=== PATIENT | female | born 1935 | race Caucasian/White ===

== ENCOUNTER 2017-06-04 18:38 | Emergency (ER) | payer MEDICARE, BC ==
[2017-06-04 19:22] VITALS: BP 143/53
--- NOTE | 2017-06-04 21:04 | RAD ---
Indication: Left hip pain. 2 views of the left hip and an AP view of the pelvis is reviewed. Incongruity at the left inferior pubic ramus is again identified and was present previously. This may represent old fracture. Patient is status post left hip replacement. The acetabular and femoral components are well seated. The right hip is unremarkable. IMPRESSION: Left hip replacement in satisfactory position. Incongruity of the left inferior pubic ramus likely due to old injury and is unchanged from September 02, 2016.
--- NOTE | 2017-06-04 22:20 | UC ---
Hip/Pelvis Pain - HPI Summary HPI Summary: LEFT HIP REPLACEMENT IN 1987 WITH REPAIR 2002. HAS HAD LEFT HIP PAIN FOR THREE WEEKS, HAS APPOINTMENT WITH DR MAGALLANES IN THREE DAYS. TODAY WAS TWISTING, FELT POP IN LEFT HIP. PAIN CONTINUES. ABLE TO BEAR WEIGHT/AMBULATE. - History Of Current Complaint Chief Complaint: UCLowerExtremity Stated Complaint: HIP INJURY Time Seen by Provider: 06/04/17 20:07 Hx Obtained From: Patient, Family/Director Digital Catalogue Onset/Duration: Sudden Onset, Lasting Hours, Lasting Weeks Timing: Constant Severity Initially: Mild Severity Currently: Mild Pain Intensity: 2 Pain Scale Used: 0-10 Numeric Location: Discrete At: - LEFT HIP Character Of Pain: Dull, Aching, Spasmodic Aggravating Factor(s): Movement, Weight Bearing Alleviating Factor(s): Rest, Position Associated Signs And Symptoms: Positive: Negative - Allergies/Home Medications Allergies/Adverse Reactions: Allergies Allergy/AdvReac Type Severity Reaction Status Date / Time Vancomycin Allergy Unknown Verified 06/04/17 19:22 Reaction Details Home Medications: Home Medications Acetaminophen [Pain Relief 8 Hour] 650 mg PO PRN 06/04/17 [History] Aleve* 1 tab PO PRN 06/04/17 [History] PMH/Surg Hx/FS Hx/Imm Hx Previously Healthy: Yes - Surgical History Surgical History: Yes Surgery Procedure, Year, and Place: d&c 1970&80's90's. hysteroscopy 1991. right breast lumpectomy with axillary dissection 1990. lt hip replacement 1987. lt hip revision 2002. lt hammertoe surgery 1998. rt foot hammertoe with cyst removal 2003. rt knee replacement 2004. left knee - Family History Known Family History: Positive: Hypertension - Social History Occupation: Retired Lives: With Family Alcohol Use: Daily Alcohol Amount: 1 GLASS WINE/DAY Substance Use Type: None Smoking Status (MU): Former Smoker Length of Time of Smoking/Using Tobacco: 30 YRS Have You Smoked in the Last Year: No When Did the Patient Quit Smoking/Using Tobacco: 1987 - Immunization History Most Recent Influenza Vaccination: 2014 Most Recent Tetanus Shot: WITHIN 10 YRS Most Recent Pneumonia Vaccination: HAS HAD- NOT SURE WHEN Review of Systems Constitutional: Negative Skin: Negative Eyes: Negative ENT: Negative Respiratory: Negative Cardiovascular: Negative Gastrointestinal: Negative Genitourinary: Negative Motor: Negative Neurovascular: Negative Musculoskeletal: Arthralgia, Myalgia Neurological: Negative Psychological: Negative Is Patient Immunocompromised?: No All Other Systems Reviewed And Are Negative: Yes Physical Exam Triage Information Reviewed: Yes Appearance: Well-Appearing, Well-Nourished, Pain Distress - MILD Vital Signs: Initial Vital Signs Temp 96.9 F 06/04/17 19:17 Pulse 73 06/04/17 19:17 Resp 16 06/04/17 19:17 BP 143/53 06/04/17 19:17 Pulse Ox 98 06/04/17 19:17 Vital Signs Reviewed: Yes Eye Exam: Normal ENT Exam: Normal ENT: Positive: Normal ENT inspection Dental Exam: Normal Neck exam: Normal Neck: Positive: Supple Respiratory Exam: Normal Respiratory: Positive: Chest non-tender, Lungs clear, Normal breath sounds, No respiratory distress, No accessory muscle use Cardiovascular Exam: Normal Cardiovascular: Positive: RRR, No Murmur, Pulses Normal, Brisk Capillary Refill Abdominal Exam: Normal Abdomen Description: Positive: Nontender, No Organomegaly Musculoskeletal: Positive: Strength Intact, ROM Intact, No Edema, Other: - TENDER TO PALPATION OF LEFT GLUTEUS Neurological Exam: Normal Psychological Exam: Normal Skin Exam: Normal Hip Injury Course/Dx - Differential Dx/Diagnosis Differential Diagnosis/HQI/PQRI: Contusion, Dislocation, Sprain, Strain Provider Diagnoses: LEFT HIP SPRAIN Discharge - Discharge Plan Condition: Stable Disposition: HOME Patient Education Materials: Hip Sprain (ED) Referrals: Charleen Magallanes MD [Medical Doctor] - Tommy Mendoza MD [Primary Care Provider] -
== END 2017-06-04 21:35 | disposition home or self-care (01) ==
LOC: UCEAST 18:38
DX: S73.102A Unspecified sprain of left hip, initial encounter (principal); X50.1XXA Overexertion from prolonged static or awkward postures, initial encounter; Y92.9 Unspecified place or not applicable
CPT/HCPCS: 99211; G0463

== ENCOUNTER 2018-01-09 22:33 | Emergency (ER) | payer MEDICARE, BC ==
[2018-01-10] MEDS ORDERED: Tetan/Diph/Pertus SYR(Tdap)* 0.5 ML SYR(BOOSTRIX) use SYR IM ONE (01:06)
--- NOTE | 2018-01-10 01:15 | ED ---
Head Injury - HPI Summary HPI Summary: Complains of mechanical fall today with head injury, laceration to left eyebrow. Patient denies LOC, RODARTE, vision change, N/V, change in mental status, neck pain, back pain chest wall pain, abdomen pain, bilateral lower external ear pain, bilateral upper extremity pain. Denies trauma to teeth tongue and lips. Family also states of change in mental status. No anti-coag. Medical history is arthritis. - History Of Current Complaint Chief Complaint: EDLacSutureRecheck Stated Complaint: FALL/FACE LAC Hx Obtained From: Patient, Family/Food Processor Pain Intensity: 0 - Allergies/Home Medications Allergies/Adverse Reactions: Allergies Allergy/AdvReac Type Severity Reaction Status Date / Time MS Vancomycin [Vancomycin] Allergy Unknown Verified 06/04/17 19:22 Reaction Details vancomycin Allergy Unknown Verified 01/09/18 22:39 Reaction Details PMH/Surg Hx/FS Hx/Imm Hx Endocrine/Hematology History: Denies: Hx Diabetes Cardiovascular History: Reports: Hx Hypertension, Other Cardiovascular Problems/ Disorders - 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 Denies: Hx Pacemaker/ICD GI History: Reports: Other GI Disorders - HX DIVERTICULITIS History: Denies: Hx Dialysis, Hx Renal Disease Musculoskeletal History: Reports: Hx Arthritis - OSTEO Denies: Hx Rheumatoid Arthritis, Hx Osteoporosis, Hx Scoliosis Sensory History: Reports: Hx Cataracts - LEFT, Hx Contacts or Glasses - READING Denies: Hx Hearing Aid Opthamlomology History: Reports: Hx Cataracts - LEFT, Hx Contacts or Glasses - READING Neurological History: Denies: Hx Headaches, Other Neuro Impairments/Disorders Psychiatric History: Denies: Hx Panic Disorder - Cancer History Cancer Type, Location and Year: breast cancer with surgery and radiation Hx Chemotherapy: No Hx Radiation Therapy: Yes - BREAST - Surgical History Surgery Procedure, Year, and Place: d&c 1970&80's90's. hysteroscopy 1991. right breast lumpectomy with axillary dissection 1990. lt hip replacement 1987. lt hip revision 2002. lt hammertoe surgery 1998. rt foot hammertoe with cyst removal 2003. rt knee replacement 2004. left knee Hx Anesthesia Reactions: No Infectious Disease History: No Infectious Disease History: Denies: Traveled Outside the [place] in Last 30 Days - Family History Known Family History: Positive: Hypertension - Social History Alcohol Use: Daily Alcohol Amount: 1 GLASS WINE/DAY Substance Use Type: Reports: None Smoking Status (MU): Former Smoker Length of Time of Smoking/Using Tobacco: 30 YRS Have You Smoked in the Last Year: No Review of Systems Constitutional: Negative Eyes: Negative ENT: Negative Cardiovascular: Negative Respiratory: Negative Gastrointestinal: Negative Genitourinary: Negative Musculoskeletal: Negative Skin: Negative Neurological: Negative Psychological: Normal All Other Systems Reviewed And Are Negative: Yes Physical Exam - Summary Physical Exam Summary: The 4 cm laceration above left eye. EOMs intact. PERRLA. No evidence of trauma to nose, tongue, teeth, nose. Full range of motion of neck. No pain with palpation of neck. No pain with palpation of back, chest wall, abdomen, bilateral lower extremities, bilateral upper extremity is. Patient is ambulated. Patient moves flexes and extends bilateral lower extremities without indication of pain. Moves and flexes and extends bilateral upper arms within range of chronic arthritis. Neuro exam normal Triage Information Reviewed: Yes Vital Signs On Initial Exam: Initial Vitals Temp Pulse Resp BP Pulse Ox 97.1 F 93 16 157/69 98 01/09/18 22:39 01/09/18 22:39 01/09/18 22:39 01/09/18 22:39 01/09/18 22:39 Vital Signs Reviewed: Yes Appearance: Positive: Well-Appearing Skin: Positive: Warm Head/Face: Positive: Normal Head/Face Inspection Eyes: Positive: Normal Neck: Positive: Supple Respiratory/Lung Sounds: Positive: Clear to Auscultation Cardiovascular: Positive: Normal Abdomen Description: Positive: Nontender Musculoskeletal: Positive: Normal Neurological: Positive: Normal Psychiatric: Positive: Normal AVPU Assessment: Alert - Gary Coma Scale Best Eye Response: 4 - Spontaneous Best Motor Response: 6 - Obeys Commands Best Verbal Response: 5 - Oriented Coma Scale Total: 15 Procedures - Laceration/Wound Repair 1 Location: face Description: Irregular Anesthesia: Local, 1.0% Length, Depth and Shape: 4cmx 1cm Betadine Prep?: Yes Irrigated w/ Saline (ccs): 40 - saline and chlorhexadane Laceration/Wound Explored: clean Debridement: minimal Suture Type: Prolene Number of Sutures: 12 - 6.0 Layer Closure?: No Sterile Dressing Applied?: No Diagnostics - Vital Signs Vital Signs Temp Pulse Resp BP Pulse Ox 01/09/18 22:39 97.1 F 93 16 157/69 98 - Laboratory Lab Statement: Any lab studies that have been ordered have been reviewed, and results considered in the medical decision making process. - CT brain CT Interpretation: No Acute Changes CT Interpretation Completed By: Radiologist maxillofacial CT Interpretation: No Acute Changes CT Interpretation Completed By: Radiologist Head Injury Course/Dx Course Of Treatment: Mechanical fall with laceration to left eyebrow. - Diagnoses Provider Diagnoses: Fall, Laceration Discharge - Sign-Out/Discharge Documenting (check all that apply): Discharge/Admit/Transfer - Discharge Plan Condition: Stable Disposition: HOME Patient Education Materials: Laceration (ED), Care For Your Stitches (ED), Facial Laceration (ED), Fall Prevention for Older Adults (ED) Referrals: Tommy Mendoza MD [Primary Care Provider] - Additional Instructions: Facial sutures out in 5-7 days. Wash with warm running water and soap. Do not submerge underwater for a week. Follow-up with primary care. Return to the ED for any new or worsening symptoms - Billing Disposition and Condition Condition: STABLE Disposition: HOME
[2018-01-10] MEDS ORDERED: Cephalexin CAP* 500 MG PO ONE (03:23)
[2018-01-10] MEDS ORDERED: Acetaminophen TAB* 325 MG PO ONE (03:29)
[2018-01-10 03:52] VITALS: BP 141/79
--- NOTE | 2018-01-10 08:00 | RAD ---
HISTORY: Maxillofacial trauma, left eye laceration COMPARISONS: None TECHNIQUE: Multiple contiguous axial CT scans were obtained of the face without intravenous contrast, with coronal and sagittal multiplanar reformations. FINDINGS: BONES: There is transverse linear lucency along the nasal bones bilaterally, without displacement. The orbital rims are intact. The zygomatic arches are intact. The pterygoid plates are intact. There is osteoarthritis of the temporal window joints. Degenerative changes are noted of the cervical spine. ORBITS: The globes are round. The optic nerves are symmetric. The extraocular musculature is normal. There is no post septal or intraconal inflammatory change. There is no retrobulbar hematoma. PARANASAL SINUSES: The paranasal sinuses are clear. BRAIN AND SOFT TISSUE: Unremarkable. OTHER: None. IMPRESSION: NONDISPLACED NASAL BONE FRACTURE.
--- NOTE | 2018-01-10 08:01 | RAD ---
HISTORY: Fall, head trauma COMPARISONS: None TECHNIQUE: Multiple contiguous axial CT scans were obtained of the head without intravenous contrast. FINDINGS: HEMORRHAGE/INFARCT: There is no hemorrhage or acute infarct. MASSES/SHIFT: There is no mass or shift. EXTRA-AXIAL SPACES: There are no extra-axial fluid collections. SULCI AND VENTRICLES: The sulci and ventricles are normal in size and position for the patient's stated age. CEREBRUM: There is mild patchy hypoattenuation of the periventricular and subcortical white matter. BRAINSTEM: There are no focal parenchymal abnormalities. CEREBELLUM: There are no focal parenchymal abnormalities. VESSELS: The vessels are grossly normal. PARANASAL SINUSES: The paranasal sinuses are clear. ORBITS: The orbits are unremarkable. BONES AND SOFT TISSUE: No bone or soft tissue abnormalities are noted. OTHER: None IMPRESSION: NO ACUTE INTRACRANIAL PATHOLOGY. MILD CHRONIC SMALL VESSEL ISCHEMIC CHANGES.
== END 2018-01-10 03:50 | disposition home or self-care (01) ==
LOC: ED 22:33
DX: S01.112A Laceration without foreign body of left eyelid and periocular area, initial encounter (principal); S09.90XA Unspecified injury of head, initial encounter; W19.XXXA Unspecified fall, initial encounter; Y93.9 Activity, unspecified; Y92.9 Unspecified place or not applicable; Z23 Encounter for immunization; I10 Essential (primary) hypertension; K57.92 Diverticulitis of intestine, part unspecified, without perforation or abscess without bleeding; Z85.3 Personal history of malignant neoplasm of breast; Z96.642 Presence of left artificial hip joint; Z96.651 Presence of right artificial knee joint; Z88.1 Allergy status to other antibiotic agents
CPT/HCPCS: 12013; 70450; 70486; 90471; 90715; 99282; A9270-GY

== ENCOUNTER 2018-05-06 21:31 | Emergency (ER) | payer MEDICARE, BC ==
[2018-05-06 21:45] VITALS: BP 140/64
[2018-05-06] MEDS ORDERED: Nitrofurantoin Macrocrystals* 50 MG CAP PO ONE (21:58)
--- NOTE | 2018-05-06 22:04 | UC ---
Complaint Female HPI - HPI Summary HPI Summary: This patient is an 82 year old F presenting to [facility] with a chief complaint of possible UTI since earlier this evening. She has slight dysuria and urinary urgency. Patient denies fever, abdominal pain, and back pain. PMHx UTIs. The patient states that this feels like past UTIs. - History Of Current Complaint Chief Complaint: UCGU Stated Complaint: POSS UTI Time Seen by Provider: 05/06/18 21:36 Hx Obtained From: Patient Onset/Duration: Sudden Onset, Still Present Timing: Constant, Lasting Minutes Severity Initially: Mild Severity Currently: Mild Pain Intensity: 1 Pain Scale Used: 0-10 Numeric Character: Burning - Slight dysuria Aggravating Factor(s): Nothing Alleviating Factor(s): Nothing - Allergies/Home Medications Allergies/Adverse Reactions: Allergies Allergy/AdvReac Type Severity Reaction Status Date / Time vancomycin Allergy Unknown Verified 05/06/18 21:38 Reaction Details PMH/Surg Hx/FS Hx/Imm Hx Cardiovascular History: Hypertension GI/ History: Diverticulitis Cancer History: Breast Cancer - Surgical History Surgical History: Yes Surgery Procedure, Year, and Place: d&c 1970&80's90's. hysteroscopy 1991. right breast lumpectomy with axillary dissection 1990. lt hip replacement 1987. lt hip revision 2002. lt hammertoe surgery 1998. rt foot hammertoe with cyst removal 2003. rt knee replacement 2005. left knee 2016 - Family History Known Family History: Positive: Hypertension - Social History Alcohol Use: Daily Alcohol Amount: 1 GLASS WINE/DAY Substance Use Type: None Smoking Status (MU): Former Smoker Length of Time of Smoking/Using Tobacco: 30 YRS Have You Smoked in the Last Year: No When Did the Patient Quit Smoking/Using Tobacco: 1987 - Immunization History Most Recent Influenza Vaccination: 2015 Most Recent Tetanus Shot: WITHIN 10 YRS Most Recent Pneumonia Vaccination: HAS HAD- NOT SURE WHEN Review of Systems Constitutional: Other - Denies Fever Gastrointestinal: Other - Denies abdominal pain. Genitourinary: Dysuria, Urgency Musculoskeletal: Other: - Denies back pain All Other Systems Reviewed And Are Negative: Yes Physical Exam - Summary Physical Exam Summary: VITAL SIGNS: Reviewed. GENERAL: Patient is a well-developed and nourished FEMALE who is lying comfortable in the stretcher. Patient is not in any acute respiratory distress. HEAD AND FACE: Normocephalic EYES: PERRLA, EOMI x 2. EARS: Hearing grossly intact. MOUTH: Oropharynx within normal limits. NECK: Supple, trachea is midline, no adenopathy, no JVD, no carotid bruit. CHEST: Symmetric, no tenderness at palpation LUNGS: Clear to auscultation bilaterally. No wheezing or crackles. CVS: Regular rate and rhythm, S1 and S2 present, no murmurs or gallops appreciated. ABDOMEN: Soft, non-tender. Bowel sounds are normal. No abdominal abnormal pulsations. EXTREMITIES: Full ROM in all major joints, no edema, no cyanosis or clubbing. NEURO: Alert and oriented x 3. No acute neurological deficits. Speech is normal and follows commands. SKIN: Dry and warm Triage Information Reviewed: Yes Vital Signs: Initial Vital Signs Temp 98.2 F 05/06/18 21:40 Pulse 100 05/06/18 21:40 Resp 16 05/06/18 21:40 BP 140/64 05/06/18 21:40 Pulse Ox 97 05/06/18 21:40 Vital Signs Reviewed: Yes Re-Evaluation - Re-Evaluation First Eval Re-Evaluation Time: 21:59 Complaint Female Dx - Course Course Of Treatment: 82-year-old female with urinary frequency and urgency. Urinalysis positive for UTI. The patient was given Nitrofurantoin. Patient was advised if the symptoms do not improve or worsen she should return to the urgent care with follow-up with the primary care physician or the emergency department for further workup and management. Patient understands and agrees. - Differential Dx/Diagnosis Provider Diagnoses: UTI Discharge - Sign-Out/Discharge Documenting (check all that apply): Patient Departure - Discharge All imaging exams completed and their final reports reviewed: No Studies - Discharge Plan Condition: Stable Disposition: HOME Prescriptions: Nitrofurantoin Macrocrystals* [Macrodantin 100 mg*] 100 mg PO BID #14 cap Patient Education Materials: Urinary Tract Infection in Women (DC) Referrals: Tommy Mendoza MD [Primary Care Provider] - Additional Instructions: Take medications as instructed and adhere to plan Take Acetaminophen or ibuprofen for pain or fever Increase your fluid intake Return to the or go to the emergency department if symptoms worsen Follow-up with primary care physician in next 2-3 days - Billing Disposition and Condition Condition: STABLE Disposition: Home - Attestation Statements Document Initiated by Ianibandria: Yes Documenting Scribe: Manuel House Provider For Whom Scribe is Documenting (Include Credential): Iron Hebert MD Scribe Attestation: I, Manuel House, scribed for Iron Hebert MD on 05/06/18 at 2207. Scribe Documentation Reviewed: Yes Provider Attestation: The documentation as recorded by the ianibManuel ayers accurately reflects the service I personally performed and the decisions made by me, Iron Hebert MD
--- NOTE | 2018-05-09 15:26 | UC ---
- Progress Note Progress Note: +E Coli sensitive to Macrobid pt Rx Rx macrobid no change 05/09/18 15:26 Re-Evaluation - Re-Evaluation First Eval Re-Evaluation Time: 21:59 Discharge - Sign-Out/Discharge Documenting (check all that apply): Post-Discharge Follow Up All imaging exams completed and their final reports reviewed: No Studies - Discharge Plan Condition: Stable Disposition: HOME Prescriptions: Nitrofurantoin Macrocrystals* [Macrodantin 100 mg*] 100 mg PO BID #14 cap Patient Education Materials: Urinary Tract Infection in Women (DC) Referrals: Tommy Mendoza MD [Primary Care Provider] - Additional Instructions: Take medications as instructed and adhere to plan Take Acetaminophen or ibuprofen for pain or fever Increase your fluid intake Return to the or go to the emergency department if symptoms worsen Follow-up with primary care physician in next 2-3 days - Billing Disposition and Condition Condition: STABLE Disposition: Home
== END 2018-05-06 22:07 | disposition home or self-care (01) ==
LOC: UCEAST 21:31
DX: N39.0 Urinary tract infection, site not specified (principal); B96.20 Unspecified Escherichia coli [E. coli] as the cause of diseases classified elsewhere; Z88.1 Allergy status to other antibiotic agents; I10 Essential (primary) hypertension; Z87.891 Personal history of nicotine dependence
CPT/HCPCS: 81003; 87077; 87086; 87186; 99212; A9270-GY; G0463

== ENCOUNTER 2018-09-07 05:30 | Inpatient (IN) | payer MEDICARE, BC ==
--- NOTE | 2018-09-05 09:23 | HP ---
PREOPERATIVE HISTORY AND PHYSICAL: DATE OF ADMISSION/SURGERY: 09/07/18 DATE OF OFFICE VISIT: 09/02/18 ATTENDING SURGEON: Dr. Mamadou Angelo.* (DICTATED BY XOCHITL GIBSON) PROCEDURE: Left total shoulder reverse. CHIEF COMPLAINT: Left shoulder pain. HISTORY OF PRESENT ILLNESS: Ebonie is an 82-year-old female, who presents to the clinic for left shoulder pain due to rotator cuff tear and osteoarthritis. She has failed conservative measures and therefore agreed to undergo a left total shoulder reverse with Dr. Angelo on 09/07/18. She also has complaint of right shoulder pain. Her last cortisone injection in the right shoulder was last May or June. The right shoulder pain has come back. She is interested in injection prior to surgery, so it will help her recover postoperatively since she will rely mostly on her right side. PAST MEDICAL HISTORY: Osteoarthritis, hypertension, lung fibrosis, osteopenia, history of breast cancer in 1990. PAST SURGICAL HISTORY: Left total hip arthroplasty, revision left total hip arthroplasty, lumpectomy of the right breast, right total knee arthroplasty, bilateral foot surgeries, hysteroscopy, tubal ligation, left total knee replacement. The patient denies prior complications with anesthesia. MEDICATIONS: 1. Amoxicillin 500 mg 4 tabs 1 hour before dental work. 2. Naproxen 500 mg 1 by mouth twice a day. 3. Tums as needed. 4. Vitamin D 1000 units 1 tab daily. 5. Lisinopril 2.5 mg 1 by mouth every day. 6. Aleve 220 mg 1 to 2 twice a day as needed. 7. Tylenol as needed. ALLERGIES: VANCOMYCIN. FAMILY HISTORY: Positive for CVA, SD, hypertension, and a brother who of a PE after knee surgery. SOCIAL HISTORY: She lives by herself. She is a former smoker, quit 31 years ago. She reports occasional alcohol consumption. She is right-hand dominant. REVIEW OF SYSTEMS: A 14-point review of systems was reviewed with the patient. Positive for current complaint and right shoulder pain, otherwise negative. Denies fever, chills, chest pain, shortness of breath, history of DVT or PE, history of bleeding disorder. PHYSICAL EXAMINATION GENERAL: An 82-year-old well-developed, well-nourished female, in no acute distress. VITAL SIGNS: Height 67, weight 174, blood pressure 132/64, respiratory rate 20 , temperature 98, BMI 27.2. HEENT: Normocephalic, atraumatic. PERRLA. Throat clear. NECK: Supple. PULMONARY: Lungs are clear to auscultation bilaterally. No wheezing, rhonchi, or rales. CARDIO: Regular rate and rhythm. S1, S2. No murmurs, gallops, or rubs. No edema. ABDOMEN: Positive bowel sounds. Soft, nontender. NEURO: Alert and oriented x3. Cranial nerves grossly intact. MUSCULOSKELETAL: Left upper extremity: Skin is intact. Forward flexion to 120, abduction to 90, external rotation to 20. Full range of motion of the elbow, wrist, and hand. +4/5 strength to rotator cuff testing with pain. Positive impingement, [place], [place], [place]. Unable to internally rotate behind her back. +2 radial pulse. Sensation intact to light touch distally. Right upper extremity: Skin is intact. No warmth or erythema. Forward flexion to 130, abduction to 130, external rotation to 30, internal rotation to lateral hip. Full range of motion of the elbow, wrist, and hand. +4/5 strength to rotator cuff testing with pain. +2 radial pulse. Sensation intact to light touch distally. DIAGNOSTIC STUDIES: CT of her upper extremity revealed glenohumeral joint osteoarthritis. IMPRESSION: Bilateral shoulder osteoarthritis. PLAN: The patient is scheduled to undergo a left total shoulder reverse with Dr. Angelo on 09/07/18. Percocet will be used for postop pain management. She will follow up 10 to 14 days postop for followup and suture removal. In regards to the right shoulder, an ultrasound-guided injection was performed today in clinic. PROCEDURE: Ultrasound guidance was used to locate the right glenohumeral joint. It was required to locate the joint to ensure proper placement of the injection. The shoulder was prepped in a sterile fashion. Dr. Angelo used an 18 -gauge needle to the posterior aspect of the shoulder to inject 2 cc of lidocaine, 2 cc of Kenalog and 1 cc of Sensorcaine into the right glenohumeral joint. The shoulder was cleaned and dressed with Band-Aid. The patient tolerated the procedure well. BARBIE GRANDE, XOCHITL [id number]/[facility] #: [id number] [facility] HOSPITALJarod
[~2018-09-07 05:30] MED LIST: Buffered Lidocaine 1% SYRIN* 1 ML/SYRINGE INTRADERM ONE
--- OUTSIDE RECORDS SUMMARY | 2018-09-07 05:33 | XMS REPORT | Continuity of Care Document ---
:1935 External Reference #:[id number] Author Name Robin Spence Care Team Providers Name Role Phone Tomym Mendoza MD Primary Care Physician Unavailable Payers Type Date Identification Numbers Payment Provider Subscriber Policy Number: [id number] Medicare Ebonie Trevizo PayID: [id number] [address] [facility] [place] [address] Expires: 2018 Policy Number: [id number] Medicare Ebonie Trevizo PayID: [id number] [address] [place] [address] Effective: 2012 Policy Number: [id number] BS Facets Ebonie Trevizo PayID: [id number] [address] [address] [place] [address] Effective: 2010 Policy Number: [id number] BS Of Y Ebonie Trevizo Expires: 2012 PayID: [id number] [address] [address] [place] [address] Advance Directives Description No Information Available Problems Date Description Provider Status Onset: 03/18/2018 Strain of muscle(s) and tendon(s) of the Mamadou Angelo MD Active rotator cuff of left shoulder, subsequent encounter Onset: 03/18/2018 Strain of muscle(s) and tendon(s) of the Mamadou Angelo MD Active rotator cuff of right shoulder, subsequent encounter Onset: 04/08/2016 Prosthetic arthroplasty of the hip Charleen Magallanes M.D. Active Onset: 04/08/2016 Arthroplasty of knee Charleen Magallanes M.D. Active Onset: 09/25/2015 Localized, primary osteoarthritis Charleen Magallanes M.D. Active Onset: 04/10/2015 Periprosthetic osteolysis Charleen Magallanes M.D. Active Onset: 04/10/2015 Osteoarthritis of knee Charleen Magallanes M.D. Active Family History Date Family Member(s) Problem(s) Comments General Heart Disease General Cancer General Diabetes Social History Type Date Description Comments Sex Unknown Lives With Alone ETOH Use Occasionally consumes alcohol Tobacco Use Start: Unknown End: Unknown Patient is a former smoker quit 1987 Smoking Status Reviewed: 09/02/18 Patient is a former smoker quit 1987 Allergies, Adverse Reactions, Alerts Date Description Reaction Status Severity Comments 10/02/2013 Vancomycin Active Medications Medication Date Status Form Strength Qnty SIG Indications Ordering Provider Amoxicillin 01/13/ Active Capsules 500mg 16caps 4 tablets 1 Nadine 2016 hour before Bordoni, dental work, PRECIPITATOR SUPERVISOR invasive gi or gu procedures Compression 01/09/ Active Misc 1units wear during Z47.1 Charleen Stockings 2015, off at [facility], night dx- ble M.D. edema Naproxen 05/23/ Active Tablets 500mg 60tabs 1 tablet with Zaneb 2013 food by mouth MD Petey twice a day Tums / Active Unknown 0000 Vitamin D / Active Tablet 1000mg 1 tab daily Unknown 0000 Lisinopril / Active Tablets 2.5mg 1 by mouth Unknown 0000 every day Aleve / Active Capsules 220mg 1-2 by mouth Unknown 0000 twice a day as needed Tylenol / Active Unknown 0000 Keflex 11/10/ Hx Capsules 500mg 16caps 1 tablet by Z47.1 2015 - mouth q6 Bordoni, 11/26/ hours [employer]CIPIT[employer] SUPERVIS[employer] 2015 Coumadin 10/24/ Hx Tablets 2mg 45tabs 1 by mouth M17.12 Nadine 2016 - daily post Bordoni, 11/26/ operatively [employer]CIPITATOR SUPERVISOR 2015 or as directed by vnayanna/. do not take this medication prior to surgery Oxycodone-Silas 10/24/ Hx Tablets 5-325mg 45tabs 1-2 by mouth M17.12 [place] taminophen 2016 - every 4-6 Bordoni, 01/08/ hours as PRECIPITATOR SUPERVISOR 2016 needed for pain. Colace 10/24/ Hx Capsules 100mg 90caps 1 by mouth up M17.12 Nadine 2015 - to 3 times a Bordoni, 08/16/ day as needed [employer]CIPITATOR SUPERVISOR 2016 for constipation. Lisinopril / Hx Unknown - 2017 Aleve / Hx Unknown - 2014 Medications Administered in Office Medication Date Status Form Strength Qnty SIG Indications Ordering Provider Triamcinolone 05/26/ Administered Injection Zaneb (Kenalog) 2017 MD Petey Triamcinolone 05/26/ Administered Injection Zaneb (Kenalog) 2017 MD Petey Depomedrol 80MG 05/30/ Administered Injection Charleen 2014 May Magallanes Depomedrol 80MG 02/08/ Administered Injection Charleen 2014 May Magallanes Depomedrol 80MG 05/23/ Administered Injection Charleen 2013 May Magallanes Immunizations Description No Information Available Vital Signs Date Vital Result Comment 09/02/2018 9:32am Height 67 inches 5'7" Weight 174.00 lb BP Systolic 132 mmHg BP Diastolic 64 mmHg Respiratory Rate 20 /min Body Temperature 98.0 F Pain Level 2 BMI (Body Mass Index) 27.2 kg/m2 07/14/2018 1:09pm Height 67 inches 5'7" Weight 176.00 lb BP Systolic 136 mmHg BP Diastolic 64 mmHg Respiratory Rate 20 /min Pain Level 5 BMI (Body Mass Index) 27.6 kg/m2 07/04/2018 9:52am Height 66 inches 5'6" Weight 170.00 lb BP Systolic 144 mmHg BP Diastolic 76 mmHg Body Temperature 97.8 F BMI (Body Mass Index) 27.4 kg/m2 05/26/2018 1:12pm Height 67 inches 5'7" Weight 176.00 lb BP Systolic 128 mmHg BP Diastolic 62 mmHg Respiratory Rate 20 /min Pain Level 5 BMI (Body Mass Index) 27.6 kg/m2 05/13/2018 9:14am Height 67 inches 5'7" Weight 170.00 lb Heart Rate 72 /min Respiratory Rate 16 /min Body Temperature 97.5 F Pain Level 3 BMI (Body Mass Index) 26.6 kg/m2 04/06/2018 9:45am Height 67 inches 5'7" Weight 169.00 lb BP Systolic 130 mmHg BP Diastolic 72 mmHg Body Temperature 97.6 F BMI (Body Mass Index) 26.5 kg/m2 03/18/2018 10:07am Height 67 inches 5'7" Weight 176.00 lb Heart Rate 67 /min BP Systolic Sitting 116 mmHg BP Diastolic Sitting 66 mmHg Respiratory Rate 20 /min Body Temperature 97.9 F Pain Level 4 BMI (Body Mass Index) 27.6 kg/m2 06/07/2017 11:41am Height 67 inches 5'7" Weight 176.00 lb BP Systolic 132 mmHg BP Diastolic 72 mmHg Respiratory Rate 20 /min Pain Level 1 BMI (Body Mass Index) 27.6 kg/m2 09/02/2016 10:27am Height 67 inches 5'7" Weight 176.00 lb Heart Rate 72 /min BP Systolic 132 mmHg BP Diastolic 70 mmHg Pain Level 0 BMI (Body Mass Index) 27.6 kg/m2 04/08/2016 9:07am Height 67 inches 5'7" Weight 165.00 lb Pain Level 2 only when it twists. BMI (Body Mass Index) 25.8 kg/m2 01/10/2016 9:38am Height 67 inches 5'7" Weight 170.00 lb Pain Level 1 BMI (Body Mass Index) 26.6 kg/m2 11/29/2015 10:56am Height 67 inches 5'7" Weight 170.00 lb Pain Level 2 BMI (Body Mass Index) 26.6 kg/m2 11/15/2015 8:58am Height 67 inches 5'7" Weight 170.00 lb Body Temperature 98.5 F Pain Level 2 BMI (Body Mass Index) 26.6 kg/m2 11/11/2015 10:00am Height 67 inches 5'7" Weight 170.00 lb Body Temperature 99.2 F Pain Level 3 BMI (Body Mass Index) 26.6 kg/m2 10/25/2015 9:37am Height 67 inches 5'7" Weight 170.00 lb Heart Rate 72 /min BP Systolic 125 mmHg BP Diastolic 72 mmHg BMI (Body Mass Index) 26.6 kg/m2 09/25/2015 1:03pm Height 67 inches 5'7" Weight 170.00 lb Pain Level 5 BMI (Body Mass Index) 26.6 kg/m2 05/30/2015 2:02pm Height 67 inches 5'7" Weight 170.00 lb Pain Level 7 BMI (Body Mass Index) 26.6 kg/m2 04/10/2015 1:20pm Height 67 inches 5'7" Weight 170.00 lb Pain Level 7 BMI (Body Mass Index) 26.6 kg/m2 02/27/2015 1:37pm Height 67 inches 5'7" Weight 170.00 lb Pain Level 0 BMI (Body Mass Index) 26.6 kg/m2 02/08/2015 9:46am Height 67 inches 5'7" Weight 170.00 lb Heart Rate 98 /min BP Systolic 119 mmHg BP Diastolic 83 mmHg Pain Level 0 BMI (Body Mass Index) 26.6 kg/m2 08/22/2014 1:25pm Height 67 inches 5'7" Weight 170.00 lb Pain Level 4 BMI (Body Mass Index) 26.6 kg/m2 05/30/2014 1:53pm Height 67 inches 5'7" Weight 170.00 lb Heart Rate 75 /min BMI (Body Mass Index) 26.6 kg/m2 05/23/2014 3:13pm Height 67 inches 5'7" Weight 170.00 lb Heart Rate 81 /min BP Systolic 139 mmHg BP Diastolic 81 mmHg BMI (Body Mass Index) 26.6 kg/m2 10/26/2013 11:33am Height 67 inches 5'7" Weight 172.00 lb Heart Rate 78 /min BP Systolic 109 mmHg BP Diastolic 58 mmHg BMI (Body Mass Index) 26.9 kg/m2 10/02/2013 2:09pm Height 67 inches 5'7" Weight 172.00 lb Heart Rate 76 /min BP Systolic 118 mmHg BP Diastolic 66 mmHg BMI (Body Mass Index) 26.9 kg/m2 11/03/2010 2:12pm Height 67 inches 5'7" Weight 169.00 lb Heart Rate 99 /min BP Systolic 122 mmHg BP Diastolic 72 mmHg BMI (Body Mass Index) 26.5 kg/m2 Results Test Date Facility Test Result H/L Range Note Creatinine 04/06/2018 [facility] Creatinine 0.70 mg/dL N 0.51- 0.[address] [place] [address] [phone] Egfr Non- 79.9 >60 Egfr 96.7 >60 1 Comp Metabolic Panel 10/25/2015 [facility] Sodium 136 mmol/L N 133-145 [address] [place] [address] [phone] Potassium 4.1 mmol/L N 3.5-5.0 Chloride 101 mmol/L N 101-111 Co2 Carbon Dioxide 29 mmol/L N 22-32 Anion Gap 6 mmol/L N 2-11 Glucose 88 mg/dL N 70-100 Blood Urea Nitrogen 16 mg/dL N 6-24 Creatinine 0.66 mg/dL N 0.51-0.95 BUN/Creatinine Ratio 24.2 High 8-20 Calcium 9.3 mg/dL N 8.6-10.3 Total Protein 6.8 g/dL N 6.4-8.9 Albumin 4.2 g/dL N 3.2-5.2 Globulin 2.6 g/dL N 2-4 Albumin/Globulin Ratio 1.6 N 1-3 Total Bilirubin 0.50 mg/dL N 0.2-1.0 Alkaline Phosphatase 71 U/L N 34-104 Alt 18 U/L N 7-52 Ast 18 U/L N 13-39 Egfr Non- 86.2 N >60 Egfr 110.8 N >60 2 Type & Screen 10/25/2015 [facility] Patient Blood Type B Positive N [address] [place] [address] [phone] Antibody Screen NEGATIVE N Inr/Protime 10/25/2015 [facility] Inr 0.94 N 0.89-1.11 [address] [place] [address] [phone] CBC Auto Diff 10/25/2015 [facility] White Blood 5.8 10^3/uL N 3.5-10.[address] [place] [address] [phone] Red Blood Count 4.19 10^6/uL N 4.0-5.4 Hemoglobin 13.7 g/dL N 12.0-16.0 Hematocrit 42 % N 35-47 Mean Corpuscular Volume 100 fL High 80-97 Mean Corpuscular Hemoglobin 33 pg High 27-31 Mean Corpuscular HGB Conc 33 g/dL N 31-36 Red Cell Distribution Width 13 % N 10.5-15 Platelet Count 246 10^3/uL N 150-450 Mean Platelet Volume 8 um3 N 7.4-10.4 Abs Neutrophils 3.6 10^3/uL N 1.5-7.7 Abs Lymphocytes 1.5 10^3/uL N 1.0-4.8 Abs Monocytes 0.4 10^3/uL N 0-0.8 Abs Eosinophils 0.2 10^3/uL N 0-0.6 Abs Basophils 0.1 10^3/uL N 0-0.2 Abs Nucleated RBC 0 10^3/uL N Granulocyte % 61.9 % N 38-83 Lymphocyte % 25.9 % N 25-47 Monocyte % 7.7 % N 1-9 Eosinophil % 3.4 % N 0-6 Basophil % 1.1 % N 0-2 Nucleated Red Blood Cells % 0.1 N Laboratory test 10/25/2015 [facility] TSH (Thyroid 4.69 ?IU/mL N 0.34-5.60 [address] Stim [place]orm) [place] [address] [phone] Urinalysis 10/25/2015 [facility] Urine Color Yellow N Profile [address] [place] [address] [phone] Urine Appearance Clear N Urine Specific [place] 1.010 N 1.010-1.030 Urine pH 7.0 N 5-9 Urine Urobilinogen Negative N Negative Urine Ketones Trace Abnormal Negative Urine Protein Negative N Negative Urine Leukocytes Negative N Negative Urine Blood Negative N Negative Urine Nitrite Negative N Negative Urine Bilirubin Negative N Negative Urine Glucose Negative N Negative Laboratory test 10/25/2015 [facility] Partial 31.0 N 26.0- 36.3 [address] [address] PTT [phone] Urine Culture And 10/25/2015 [facility] Urine SEE RESULT [address] [place] [address] [phone] Comp Metabolic 04/11/2014 [facility] Sodium 135 mmol/L N 133- [address] [place] [address] [phone] Potassium 4.5 mmol/L N 3.7-5.6 Chloride 102 mmol/L N 101-111 Co2 Carbon Dioxide 28 mmol/L N 22-32 Anion Gap 5 mmol/L N 2-11 Glucose 79 mg/dL N 70-100 Blood Urea Nitrogen 17 mg/dL N 6-24 Creatinine 0.70 mg/dL N 0.51-0.95 BUN/Creatinine Ratio 24.3 High 8-20 Calcium 9.3 mg/dL N 8.6-10.3 Total Protein 6.5 g/dL N 6.4-8.9 Albumin 3.9 g/dL N 3.2-5.2 Globulin 2.6 g/dL N 2-4 Albumin/Globulin Ratio 1.5 N 1-3 Total Bilirubin 0.40 mg/dL N 0.2-1.0 Alkaline Phosphatase 68 U/L N 34-104 Alt 17 U/L N 7-52 Ast 19 U/L N 13-39 Egfr Non- 80.7 N >60 Egfr 103.8 N >60 6 1 Because ethnic data is not always readily available, this report includes an eGFR for both -Americans and non- Americans. The National Kidney Disease Education Program (NKDEP) does not endorse the use of the MDRD equation for patients that are not between the ages of 18 and 70, are , have extremes of body size, muscle mass, or nutritional status, or are non- or non-. According to the National Kidney Foundation, irrespective of diagnosis, the stage of the disease is based on the level of kidney function: Stage Description GFR(mL/min/1.73 m(2)) 1 Kidney damage with normal or decreased GFR 90 2 Kidney damage with mild decrease in GFR 60-89 3 Moderate decrease in GFR 30-59 4 Severe decrease in GFR 15-29 5 Kidney failure <15 (or dialysis) 2 Because ethnic data is not always readily available, this report includes an eGFR for both -Americans and non- Americans. The National Kidney Disease Education Program (NKDEP) does not endorse the use of the MDRD equation for patients that are not between the ages of 18 and 70, are , have extremes of body size, muscle mass, or nutritional status, or are non- or non-. According to the National Kidney Foundation, irrespective of diagnosis, the stage of the disease is based on the level of kidney function: Stage Description GFR(mL/min/1.73 m(2)) 1 Kidney damage with normal or decreased GFR 90 2 Kidney damage with mild decrease in GFR 60-89 3 Moderate decrease in GFR 30-59 4 Severe decrease in GFR 15-29 5 Kidney failure <15 (or dialysis) 3 10/30 4 10/30 5 SEE RESULT BELOW Name: ALEX TREVIZOETTE Ayanna : [address]: Charleen Magallanes MD Acct: [id number] Unit: [id number] AGE: 79 Location: [facility] Re10/25/15 SEX: F Status: REG REF SPEC: [id number] TASHI: 10/25/15-13[address] [facility] [address]: Charleen Magallanes MD REQ: [id number] RECD: 10/25/15-9515 STATUS: MIGDALIA ALBERT DR: Tommy Mendoza MD _ SOURCE: URINE SPDESC: ORDERED: Urine Culture QUERIES: Urine Source: Clean Catch Procedure Result Reported Site Urine Culture Final 10/26/15- 1312 ML No growth of clinically significant organisms * ML - MAIN LAB (PSC1) . END OF REPORT * ML=Testing performed at Main Lab DEPARTMENT OF PATHOLOGY, [address] [place] [address] Edy Tristan M.D. Director [facility] # [id number] 6 Because ethnic data is not always readily available, this report includes an eGFR for both -Americans and non- Americans. The National Kidney Disease Education Program (NKDEP) does not endorse the use of the MDRD equation for patients that are not between the ages of 18 and 70, are , have extremes of body size, muscle mass, or nutritional status, or are non- or non-. According to the National Kidney Foundation, irrespective of diagnosis, the stage of the disease is based on the level of kidney function: Stage Description GFR(mL/min/1.73 m(2)) 1 Kidney damage with normal or decreased GFR 90 2 Kidney damage with mild decrease in GFR 60-89 3 Moderate decrease in GFR 30-59 4 Severe decrease in GFR 15-29 5 Kidney failure <15 (or dialysis) Procedures Date Code Description Status 05/26/2018 Inj/Aspir Major JT Or Bursa W/ US Completed 10/31/2015 80753 TKR Total Knee Replacement Completed 10/31/2015 46343 TKR Total Knee Replacement Completed 05/30/2015 49421 Inject/Drain Joint/Bursa Major W/O US Completed 02/08/201521396 Inject/Drain Joint/Bursa Major W/O US Completed 08/22/2014 84910 Rad Exam; Foot Comp Completed 08/22/2014 46530 Rad Exam; Ankle Limited Completed 05/23/201473793 Inject/Drain Joint/Bursa Major W/O US Completed 05/23/2014 02352 Rad Exam; Hip Unilat Completed 05/23/2014 88396 Rad Exam; Hip Unilat Comp Completed 05/23/2014 95092 Xray Knee 3 Views Completed 05/23/2014 80521 Xray Knee 3 Views Completed 10/26/2013 50978 Rad Shoulder Comp, Min. 2 Views Completed 10/26/2013 91133 Rad Shoulder Comp, Min. 2 Views Completed 07/11/2013 05574 Xray Knee 3 Views Completed 07/11/2013 85087 Xray Knee 3 Views Completed 07/11/2013 69302 Rad Exam; Hip Unilat Completed 07/11/2013 97464 Rad Exam; Hip Unilat Completed 07/11/2013 26744 Rad Exam; Hip Unilat Completed 07/11/2013 56812 Rad Exam; Pelvis Completed Encounters Type Date Location Provider Dx Diagnosis Office Visit 07/14/2018 [facility] Mamadou Angelo MD M19.012 Primary 1:15p [facility] osteoarthritis, left shoulder M54.2 Cervicalgia Office Visit 07/04/2018 9:30a Orthopedic Charleen Magallanes Z96.642 Presence of left Services Of MAdis artificial hip [facility] 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 shoulder M19.011 Primary osteoarthritis, right shoulder S46.011D Strain of musc/tend the rotator cuff of right shoulder, subs S46.012D Strain of musc/tend the rotator cuff of left shoulder, subs Office Visit 05/13/2018 9:15a Orthopedic Charleen Magallanes Z96.642 Presence of left Services Of M.D. artificial hip [facility] 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 artificial hip [facility] joint T84.051A Periprosth osteolysis of internal prosthetic l hip jt, init Office Visit 03/18/2018 Orthopedic Mamadou Angelo, M19.012 Primary 10:00a Services Of osteoarthritis, left [facility] shoulder M19.011 Primary osteoarthritis, right shoulder S46.011D Strain of musc/tend the rotator cuff of right shoulder, subs S46.012D Strain of musc/tend the rotator cuff of left shoulder, subs Office Visit 06/07/2017 11:30a [facility] Services Charleen Magallanes, M25.552 Pain in left Of [facility] M.D. 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 M.D. 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 following joint [facility] replacement surgery Z96.652 Presence of left artificial knee joint Z96.642 Presence of left artificial hip joint M25.552 Pain in left hip Office Visit 11/02/2015 [facility] Z96.652 Presence of 10:18a Assocdakotah, PRECIPITATOR SUPERVISOR left artificial Hospitalists knee joint H53.9 Unspecified visual disturbance I10 Essential (primary) hypertension Office Visit 11/01/2015 [facility] Z96.652 Presence of 10:17a Assoc,dakotah Dillard, PRECIPITATOR SUPERVISOR left artificial Hospitalists knee joint H53.9 Unspecified visual disturbance I10 Essential (primary) hypertension Office Visit 10/31/2015 [facility] Z96.652 Presence of 10:16a Assoc,pc Gilma, PRECIPITATOR SUPERVISOR left artificial Hospitalists knee joint H53.9 Unspecified visual disturbance I10 Essential (primary) hypertension Office Visit 09/25/2015 [facility]opedic Charleen M17.12 Unilateral primary 1:00p Services Of May Magallanes osteoarthritis, left [facility] 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 knee Office Visit 04/10/2015 Rachel Villaseñor 715.96 Osteoarthrosis Unspec 1:15p Services Of May Magallanes Genlyoungd Or Localized [facility]. Lower Leg 996.45 Kaelyn-Prosthetic Osteolysis 715.15 Osteoarthrosis Localized Prim Pelvic & Thigh 719.46 Pain Joint Lower Leg Office Visit 02/27/2015 [facility]opedic Usman 715.17 Osteoarthrosis 1:40p Services Of May Ortiz Localized Prim Ankle [facility] & Foot Office Visit 08/22/2014 Rachel Magallanes, 715.96 Osteoarthrosis 1:15p Services Of May Unspec Genlzd Or C.M.A. Localized Lower Leg Office Visit 05/30/2014 Rachel Magallanes, 715.96 Osteoarthrosis 1:45p Services Of May Unspec Genlzd Or C.M.[facility]. Localized Lower Leg Office Visit 05/23/2014 Rachel Magallanes, 724.2 Lumbago 1:30p Services Of May [facility]. 715.96 Osteoarthrosis Unspec Genlzd Or Localized Lower Leg 996.45 Kaelyn-Prosthetic Osteolysis 715.95 Osteoarthrosis Unspec Genlzd Or Localized Pelvic & Thigh 719.06 Effusion Joint Lower Leg Office Visit 10/26/2013 11:30a Orthopedic Ebenezer Colvin 715.11 Osteoarthrosis Services Of May Localized Prim [facility] Shoulder Region Office Visit 10/02/2013 2:15p Orthopedic Charleen 715.95 Osteoarthrosis Services Of May Magallanes Unspec Genlzd Or [facility]. Localized Pelvic & Thigh 715.36 Osteoarthrosis Localzd Not Spec Prime Or 2Ndy Lower Leg V43.64 Hip Replacement By Other Means V43.65 Knee Replacement By Other Means Office Visit 07/26/2013 1:00p Orthopedic Charleen 715.95 Osteoarthrosis Services Of May Magallanes Unspec Genlzd Or [facility]. Localized Pelvic & Thigh 715.36 Osteoarthrosis Localzd Not Spec Prime Or 2Ndy Lower Leg V43.64 Hip Replacement By Other Means V43.65 Knee Replacement By Other Means Office Visit 07/11/2013 Rachel Colvin, 716.58 Polyarthropathy 10:45a Services Of May Unspec Other Spec [facility]. Sites Office Visit 06/14/2012 Rachel Colvin 715.36 Osteoarthrosis 10:15a Services Of May Localparis Not Spec C.M.[facility]. Prime Or 2Ndy Lower Leg Office Visit 11/26/2011 Rachel Colvin 716.91 Arthropathy Unspec 8:45a Services Of May Shoulder Region [facility]. Office Visit 11/03/2010 Rachel Colvin 716.91 Arthropathy Unspec 1:15p Services Of Mya Shoulder Region [facility]. Plan of Treatment Future Appointment(s):09/20/2018 1:45 pm - Mamadou Angelo MD at [facility]09/07/2018 7:30 am - Tiffani Acosta PA-C at [facility]09/07/2018 7:30 am - Mamadou Angelo MD at [facility]10/05/2018 10:00 am - Charleen Magallanes M.D. at [facility]09/02/2018 - Mamadou Angelo, MDM19.012 Primary osteoarthritis, left shoulderFollow up:Follow up: 10-14 days post opM19.011 Primary osteoarthritis , right shoulderNew Xrays:Inj/Aspir Major JT Or Bursa W/ US, Ordered: 09/02/18
[2018-09-07] MEDS ORDERED: Gabapentin CAP(*) 300 MG ONE (05:57)
[2018-09-07] MEDS ORDERED: ceFAZolin 2 GM PREMIX in ORs 2 GM/50 ML BAG IVPB ONE (05:57)
[2018-09-07] MEDS ORDERED: Buffered Lidocaine 1% SYRIN* 1 ML/SYRINGE INTRADERM ONE (05:57)
[2018-09-07] MEDS ORDERED: Famotidine IV* 10 MG/ML 2 ML (20 mg) ONE (05:57)
[2018-09-07] MEDS ORDERED: Famotidine IV* 10 MG/ML 2 ML (20 mg) IV ONE (06:00)
[2018-09-07] MEDS ORDERED: Dexamethasone IV* 4 MG/ML 1 ML (4 MG) IV SLOW PU ONE (06:00)
[2018-09-07] MEDS ORDERED: Gabapentin CAP(*) 300 MG PO ONE (06:00)
[2018-09-07] MEDS ORDERED: Lactated Ringers 1000 ML Bag* 1,000 ML IV SCH (06:00)
[2018-09-07] MEDS ORDERED: Ropivacaine* 2 MG/ML 20 ML VIAL (0.2%) ONE (07:08)
[2018-09-07] MEDS ORDERED: Lidocaine 1%* 5 ML VIAL ONE (07:22)
[2018-09-07] MEDS ORDERED: ROPIVACAINE 5 MG/ML 30 ML BTL (0.5%) ONE (07:22)
[2018-09-07] MEDS ORDERED: Midazolam* 1 MG/ML 5 ML VIAL (5 MG) ONE (07:32)
[2018-09-07] MEDS ORDERED: Succinylcholine* 20 MG/ML 10 ML VIAL ONE (07:32)
[2018-09-07] MEDS ORDERED: fentaNYL* 50 MCG/ML 2 ML VIAL (100 MCG VIAL) ONE ×2 (07:32→08:21)
[2018-09-07] MEDS ORDERED: KETAMINE HCL* 50 MG/ML 10 ML VIAL ONE (08:18)
[2018-09-07] MEDS ORDERED: Rocuronium* 10 MG/ML VIAL ONE (09:06)
[2018-09-07] MEDS ORDERED: DiMENhydriNATE IV* 50 MG/ML VIAL ONE (09:24)
[2018-09-07] MEDS ORDERED: Dexamethasone IV* 4 MG/ML 1 ML (4 MG) ONE (09:24)
[2018-09-07] MEDS ORDERED: Ketorolac INJ* 30 MG/ML 1 ML VIAL ONE (09:24)
[2018-09-07] MEDS ORDERED: Propofol* 10 MG/ML 20 ML BTL ONE (09:24)
[2018-09-07] MEDS ORDERED: Ondansetron INJ* 2 MG/ML VIAL ONE (09:24)
[2018-09-07] MEDS ORDERED: Phenylephrine INJ* 10 MG/ML 1 ML VIAL (10 MG) ONE (09:24)
[2018-09-07] MEDS ORDERED: Acetaminophen IV 1GM/100ML * 1,000 MG/100 ML VIAL IVPB ONE (09:42)
[2018-09-07] MEDS ORDERED: DiMENhydriNATE IV* 50 MG/ML VIAL IV PUSH PRN (09:42)
[2018-09-07] MEDS ORDERED: oxyCODONE TAB* 5 MG TAB PO PRN ×2 (09:42→10:06)
[2018-09-07] MEDS ORDERED: Naloxone* 0.4 MG/ML 1 ML VIAL IV PRN (09:42)
[2018-09-07] MEDS ORDERED: Gabapentin CAP(*) 100 MG PO ONE (09:44)
[2018-09-07] MEDS ORDERED: HYDROmorphone INJ1* 1 MG/ML SYRINGE ONE ×2 (09:49→09:53)
[2018-09-07] MEDS ORDERED: Acetaminophen IV 1GM/100ML * 100 ML ONE (09:54)
[2018-09-07] MEDS ORDERED: Gabapentin CAP(*) 100 MG ONE (09:55)
[2018-09-07] MEDS ORDERED: Ondansetron INJ* 2 MG/ML VIAL IV PRN (10:06)
[2018-09-07] MEDS ORDERED: Cyclobenzaprine TAB* 10 MG PO PRN (10:06)
[2018-09-07] MEDS ORDERED: diPHENhydraMINE IV* 50 MG/ML 1 ml VIAL (BENADRYL) IV PRN (10:06)
[2018-09-07] MEDS ORDERED: Temazepam CAP* 15 MG PO PRN (10:06)
[2018-09-07] MEDS ORDERED: Bisacodyl SUPP* 10 MG SUPP PR PRN (10:06)
[2018-09-07] MEDS ORDERED: Magnesium Hydroxide LIQ* 30 ML UDC PO PRN (10:06)
[2018-09-07] MEDS ORDERED: diPHENhydraMINE PO* 25 MG PO PRN (10:06)
[2018-09-07] MEDS ORDERED: oxyCODONE/Acetamin 5/325 MG* TAB PO PRN ×2 (10:06)
[2018-09-07] MEDS ORDERED: Polyethylene Glycol 3350* 17 GM PACKET PO PRN (10:06)
[2018-09-07] MEDS ORDERED: Morphine VIAL* 4 MG/ML VIAL (1 ml vial) IV PRN (10:06)
[2018-09-07] MEDS ORDERED: Ondansetron ODT TAB* 4 MG PO PRN (10:06)
[2018-09-07] MEDS ORDERED: traMADol TAB* 50 MG PO PRN (10:06)
[2018-09-07] MEDS: HYDROmorphone INJ1* 1 MG/ML SYRINGE IV PRN ×2 (10:28→10:41)
[2018-09-07] MEDS: Lactated Ringers 1000 ML Bag* 1,000 ML IV SCH ×2 (11:43→21:51)
--- NOTE | 2018-09-07 12:35 | OP ---
DATE OF OPERATION: 09/07/18 - ROOM #351 DATE OF : 33 SURGEON: Mamadou Angelo MD LENS HARDENER: XOCHITL Henderson and Carly Payan. An minister assistant was needed for the entirety of the case to help with positioning, retraction, and was utilized throughout all portions of the case. ANESTHESIOLOGIST: Dr. Polo. ANESTHESIA: General. PRE-OP DIAGNOSIS: Left shoulder rotator cuff arthropathy. POST-OP DIAGNOSIS: Left shoulder rotator cuff arthropathy. OPERATIVE PROCEDURE: Left shoulder open biceps tenodesis and reverse shoulder arthroplasty. INDICATIONS: Ebonie Marrero is an 82-year-old female who has had persistent pain and a severe osteoarthritis with some question of rotator cuff degeneration who presents with persistent pain. She has elected to proceed with surgical treatment. Risks and benefits were discussed at length, included but not limited to bleeding, infection, damage to nerves, vessels, surrounding structures, wound nonhealing, persistent pain, need for surgery, scaring, stiffness, incomplete release of symptoms, risks of anesthesia, and risk of DVT. She has elected to proceed. COMPLICATIONS: None. ESTIMATED BLOOD LOSS: Minimal. OUTPUT: Drain x1. IMPLANTS: Tornier Aequalis Reversed II threaded post baseplate 25 x 30, Reversed Centered glenosphere size 36, Flex shoulder reverse tray that was central with reverse +9 insert and a Ascend Flex 4B stem. DESCRIPTION OF PROCEDURE: The patient was greeted in the preoperative area by the attending surgeon. Correct extremity was marked, consent was confirmed. The patient was brought back to the operating suite where she was placed in supine position on the operating room table. She then underwent general anesthesia and endotracheal intubation after which she was placed in a lazy- beach chair position. The left arm was then prepped and draped in the usual sterile fashion. All bony prominences were padded. She was prepped with chlorhexidine soap, scrub, and alcohol wipe and a final prep with ChloraPrep. After appropriate surgical pause indicating side, site, procedure, and administration of antibiotics; the deltopectoral incision was made using a 15 blade. Soft tissues were carefully dissected to expose the deltopectoral interval. The cephalic vein was identified. The plain was identified and the deltoid and the cephalic were taken laterally. The pec was taken medially. The clavipectoral fascia was identified and incised. The CA ligament was then released. The lateral aspect of the biceps was exposed. The pec tendon was found in its insertion, the proximal 1 to 1.5 cm were released with electrocautery device. The biceps was then tenotomized and tenodesed with a heavy nonabsorbable suture. The biceps was tenotomized proximal to that. There was a ganglion along the biceps as well. The circumflex vessels were then cauterized and the subscap was released in a subscap peel-type fashion. The capsule as well as the subscap was removed. The subscap was tagged. The inferior osteophytes were then identified and then removed as the shoulder was dislocated using an osteotome to demonstrate the normal surgical neck. The supraspinatus appeared to have portion of a full-thickness tear, but the infraspinatus was intact. The head was exposed, there were grade 4 changes. A provisional neck cut was marked using the guide with a Bovie and then the head was then cut using sagittal saw. The bone quality was fair to poor. The canal finder was then used to find the canal as well as the sizing guide. Then broaching began, size 3 was found to be okay and then the remaining of the bone was reamed. The protection plate was placed. Attention was then directed to the glenoid. The head was brought back into the shoulder. Care was taken not to put too much stress on the structures because she has poor quality bone. The posterior retractor was placed. The subscap was identified and the superior, inferior, and the glenohumeral ligaments were then released carefully. The glenoid neck retractor was then placed. There was some deformity to the glenoid as well. The labrum was removed anteriorly as well as superiorly as well as stump of the biceps. Inferiorly with tension on the sutures, the tissue was then carefully released to show us the inferior aspect of the glenoid. At this point, the glenoid had grade 4 changes. There is no cartilage left. Once all soft tissue had been removed, the size 25 baseplate guide was then placed and the guidewire was placed with 0 offset. Once it was found in the appropriate position, the size 25 mm baseplate reamer was then reamed. Then the footprint reamer was then hand reamed to a circumference of 36 mm. The size 8 mm cannulated drill bit was then used to drill the base and then a size 6.5 mm drill bit was drilled. It was measured to be about 25 to 26 mm. A size 30 baseplate was chosen. The drill hole was intact and the 25 x 30 baseplate was then placed with excellent purchase. Three interlocking screws were placed at the appropriate length for cortical purchase. At this point, the glenosphere was brought to the field and secured with a set screw. The retractors were carefully removed and attention was directed to the humerus. The humerus was brought through the wound. The stem was checked again. The size 3 was perhaps a little too loose, so a size 4 was carefully broached and was found to have a better press fit. Decision was made to proceed with that. The Centered trial was then placed and the +6 was chosen. +6 had a little bit more shuck and a +9 was found to be a better poly. The shoulder was then dislocated and final implants were chosen and prepared in the back table by the attending surgeon. The three #5 Ethibond sutures were also placed transosseous for subscap fixation. After this was done, the implant was brought from the back table and placed with excellent purchase. The shoulder was then reduced and taken through range of motion. Forward flexed to about 150, abducted to 90 , external rotation to about 45. The wounds were then copiously irrigated with sterile saline. The subscap was closed with a previously placed suture in a horizontal mattress configuration. The wounds were irrigated again and intraarticular drain was placed and then the wounds were irrigated again. The deltopectorals fascia was closed with #2 Ethibond in interrupted fashion. The wounds were irrigated again and the skin was closed in layers with 3-0 Monocryl , sterile dressings were applied. The wound was injected with 0.2% Ropivacaine. Cryo/Cuff and UltraSling were applied. She was awoken from anesthesia and transferred to PACU in stable condition. POSTOPERATIVE PLAN: She will be nonweightbearing. She will be in a sling for 6 weeks. She will be discharged on pain medication, but she will be admitted for at least overnight, possibly discharged to [facility] versus discharged home with services. She will receive 24 hour postoperative antibiotics. DVT prophylaxis considered and will be Lovenox while in house and she will go home without prophylaxis due to no previous personal or family history. I will see the patient back in 10 to 14 days. [id number]/[facility] #: [id number] MILA
[2018-09-07] MEDS: ceFAZolin 1 GM ADVAN(*) 1 GM in NS 0.9% 50 ML* 50 ML IVPB SCH (17:08)
[2018-09-07] MEDS: Acetaminophen TAB* 325 MG PO SCH (17:11)
[2018-09-07] MEDS: Docusate CAP* 100 MG PO SCH (20:52)
[2018-09-08] MEDS: ceFAZolin 1 GM ADVAN(*) 1 GM in NS 0.9% 50 ML* 50 ML IVPB SCH ×2 (01:07→08:25)
[2018-09-08] MEDS: Acetaminophen TAB* 325 MG PO SCH ×3 (01:07→17:00)
[2018-09-08 05:19] LABS: Hematocrit 26 % (35-47); Hemoglobin 8.5 g/dl (12.0-16.0); Mean Platelet Volume 7.3 fL (7.4-10.4); Platelet Count 209 10^3/ul (150-450)
[2018-09-08 05:39] LABS: BUN/Creatinine Ratio 32.5 (8-20); Calcium 7.9 mg/dL (8.6-10.3); EGFR African American 184.4 (>60); EGFR Non-African American 152.4 (>60); Potassium 4.2 mmol/L (3.5-5.0)
[2018-09-08] MEDS: Docusate CAP* 100 MG PO SCH ×2 (08:26→21:46)
[2018-09-08] MEDS: Lisinopril TAB* 5 MG PO SCH (08:26)
[2018-09-08] MEDS ORDERED: Enoxaparin(*) 40 MG/0.4 ML SYR SUBCUT SCH (12:00)
--- NOTE | 2018-09-08 14:33 | PN ---
Progress Note - Progress Note Date of Service: 09/08/18 SOAP: Subjective: []Pt seen and examined at beside. Her pain is rated 1/10, she denies CP, SOB, dizziness, nausea. She is concerned about going home today as she will not have / help until tomorrow when her daughters will be taking care of her. Objective: []General: Well appearing, NAD RUE: Right shoulder dressing CDI. Cryo cuff in use. Drain pulled with tip intact , tolerated well by the patient. Wrist and all 5 digits flexion and extension intact. Okay and thumbs up intact. Sensation intact to light touch throughout the extremity. Assessment: []POD 1 sp reverse right total shoulder arthroplasty with open biceps tenodesis Plan: []NWB RUE R shoulder passive FF and ABD to 90, ER to 25. Elbow, wrist and hand active ROM okay lovenox 40 mg q 24 hour while in house, no DVT prophylaxis at discharge Will either DC to home with support from daughters tomorrow or will need rehab placement. Pt feels confident to go home with the help she has Vital Signs Temp 97.5 F 09/08/18 11:42 Pulse 99 09/08/18 13:35 Resp 16 09/08/18 11:42 BP 120/48 09/08/18 13:35 Pulse Ox 97 09/08/18 11:42 Intake & Output 09/07/18 09/08/18 09/08/18 18:59 06:59 18:59 Intake Total 2760 1860 1858 Output Total 200 225 Balance 2560 1635 1858 Intake: IV Fluids 2100 1100 1148 ABX - CEFAZOLIN 110 110 LR 2000 990 1038 NS 50ML, Cefazolin 2G 100 Oral 660 760 710 Output: Hemovac Amount #1 225 Urine 200 0 Other: Estimated Void Large Medium # Voids 2 2 Laboratory Last Values Hgb 8.5 g/dl (12.0-16.0) L 09/08/18 05:04 Hct 26 % (35-47) L 09/08/18 05:04 Plt Count 209 10^3/ul (150-450) 09/08/18 05:04 MPV 7.3 fL (7.4-10.4) L 09/08/18 05:04 Sodium 134 mmol/L (135-145) L 09/08/18 05:04 Potassium 4.2 mmol/L (3.5-5.0) 09/08/18 05:04 Chloride 107 mmol/L (101-111) 09/08/18 05:04 Carbon Dioxide 20 mmol/L (22-32) L 09/08/18 05:04 Anion Gap 7 mmol/L (2-11) 09/08/18 05:04 BUN 13 mg/dL (6-24) 09/08/18 05:04 Creatinine 0.40 mg/dL (0.51-0.95) L 09/08/18 05:04 Est GFR ( Amer) 184.4 (>60) 09/08/18 05:04 Est GFR (Non-Af Amer) 152.4 (>60) 09/08/18 05:04 BUN/Creatinine Ratio 32.5 (8-20) H 09/08/18 05:04 Glucose 134 mg/dL (70-100) H 09/08/18 05:04 Calcium 7.9 mg/dL (8.6-10.3) L 09/08/18 05:04
[2018-09-09] MEDS: Acetaminophen TAB* 325 MG PO SCH ×2 (01:08→09:50)
[2018-09-09 05:49] LABS: Hematocrit 32 % (35-47); Hemoglobin 10.9 g/dl (12.0-16.0); Mean Platelet Volume 7.3 fL (7.4-10.4); Platelet Count 260 10^3/ul (150-450)
[2018-09-09] MEDS: Docusate CAP* 100 MG PO SCH (09:50)
[2018-09-09] MEDS: Lisinopril TAB* 5 MG PO SCH (09:50)
--- NOTE | 2018-09-09 09:52 | PN ---
Progress Note - Progress Note Date of Service: 09/09/18 SOAP: Subjective: []Patient seen OOB in chair. Reading paper, comfortable. She is wondering when OT was going to work with her, however there is documentation that she had OT session with family present last evening. She wants to go home, asking when she will be dressed. She states her son will be taking her home this afternoon. Objective: [] Vital Signs Temp 99.2 F 09/09/18 03:32 Pulse 99 09/09/18 03:32 Resp 16 09/09/18 03:32 BP 121/51 09/09/18 03:32 Pulse Ox 97 09/09/18 03:32 Intake & Output 09/08/18 09/09/18 09/09/18 18:59 06:59 18:59 Intake Total 1858 1020 Output Total 500 Balance 1858 520 Intake: IV Fluids 1148 ABX - CEFAZOLIN 110 LR 1038 Oral 710 1020 Output: Urine 500 Other: Estimated Void Medium Medium # Bowel Movements 1 Estimated Stool Amount Medium # Voids 2 1 Laboratory Results - last 24 hr 09/09/18 05:20 Hgb 10.9 L Hct 32 L Plt Count 260 MPV 7.3 L Left shoulder dressings changed, wound benign. 4x4s and tegaderm applied. No drainage from incision or hemovac site. Sensation intact all digits LUE, thumb still from baseline OA, has active motion all digits Assessment: []s/p left reverse total shoulder arthroplasty POD #2 Plan: []Discharge home this afternoon Discontinue DVT prophylaxis Tylenol or Tramadol for pain at home Follow up as scheduled with Dr. Angelo in 10-14 days
[2018-09-09 11:53] VITALS: BP 138/61
--- NOTE | 2018-09-09 13:58 | DS ---
AMENDED REPORT NOW INCLUDES DESIGNATED COSIGNER DISCHARGE SUMMARY: DATE OF ADMISSION: 09/07/18 DATE OF DISCHARGE: 09/09/18 ATTENDING PHYSICIAN: Dr. Mamadou Angelo.* (DICTATED BY XOCHITL ROWLAND) ADMISSION DIAGNOSIS: Left shoulder rotator cuff arthropathy. DISCHARGE DIAGNOSIS: Left shoulder rotator cuff arthropathy. SURGERY PERFORMED: Left shoulder open biceps tenodesis and reverse shoulder arthroplasty. HOSPITAL COURSE: The patient is an 82-year-old female with persistent pain and severe osteoarthritis with rotator cuff degeneration, who failed conservative management and elected to proceed with surgical intervention. She was taken to the operating room under the care of Dr. Angelo on the date of 09/07/18. She tolerated the procedure well and left the operating room in stable condition. Postoperatively, she did well. On postop day #1, it was unclear whether she would have appropriate help at home, but this was arranged with good family support of her daughters and son and home occupational therapy also set up prior to discharge. She had no postoperative complications and was found to be stable for discharge to home on the date of 09/09/18. CONDITION ON DISCHARGE: Temperature 98.4, pulse 108, respiratory rate 17, O2 saturation 96% on room air, blood pressure 164/75. Her left shoulder dressings were taken down. Her incision is dry. The Hemovac site is not draining. She has a 2+ radial pulse, has full sensation in the left hand and is able to move all digits freely. Axillary nerve function intact. PLAN: The patient will be discharged to home this afternoon. She will have help from her children. She will have home occupational therapy. She may shower postoperative day #3, apply light dressing to cover her incision as needed. She will wear the sling at all times except for bathing and elbow exercises. She will be nonweightbearing on the left upper extremity. She will be seen in follow up with Dr. Angelo as scheduled in 10 to 14 days. She is provided with a prescription of tramadol 50 mg q.6 hours p.r.n. pain #28, 0 refills. Her prescriptions were sent to [facility] to [facility] for delivery prior to discharge home today. All questions were answered. XOCHITL ROWLAND [id number]/[facility] #: [id number] MILA
== END 2018-09-09 12:19 | disposition home health service (06) | DRG 483 ==
LOC: AA 05:30 → SSU 10:06
PROVIDERS: ADMIT Orthopaedic Surgery; ATTEND Orthopaedic Surgery
PROC: 0RRK00Z Replacement of Left Shoulder Joint with Reverse Ball and Socket Synthetic Substitute, Open Approach (ICD-10-PCS; principal; 2018-09-07 07:30)
DX: M19.012 Primary osteoarthritis, left shoulder (principal); M75.102 Unspecified rotator cuff tear or rupture of left shoulder, not specified as traumatic; F41.9 Anxiety disorder, unspecified; I10 Essential (primary) hypertension; J84.10 Pulmonary fibrosis, unspecified; Z96.653 Presence of artificial knee joint, bilateral; Z96.642 Presence of left artificial hip joint; M19.011 Primary osteoarthritis, right shoulder; K57.90 Diverticulosis of intestine, part unspecified, without perforation or abscess without bleeding; M85.80 Other specified disorders of bone density and structure, unspecified site; Z98.51 Tubal ligation status; Z72.89 Other problems related to lifestyle; Z87.891 Personal history of nicotine dependence; Z85.3 Personal history of malignant neoplasm of breast; Z86.010 Personal history of colon polyps; Z88.1 Allergy status to other antibiotic agents; Z82.49 Family history of ischemic heart disease and other diseases of the circulatory system; Z82.3 Family history of stroke
CPT/HCPCS: 36415; 80048; 85014; 85018; 85049; A9270-GY; C1713; C1776; G8978-GP-CI; G8979-GP-CI; G8987-GO-CL; G8988-GO-CK; J0330; J0690; J1100; J1170; J1240; J1650; J1885; J2250; J2405; J2704; J2795; J3010

== ENCOUNTER 2023-10-14 11:05 | Inpatient (IN) ==
[2023-10-14 11:50] LABS: ABS Basophils 0.1 10^3/uL (0.0-0.1); ABS Eosinophils 0.2 10^3/uL (0.0-0.5); ABS Monocytes 0.7 10^3/uL (0.0-0.9); ABS Neutrophils 5.8 10^3/uL (1.5-7.6); Eosinophil % 3.1 %; Hematocrit 37.3 % (35-45); Hemoglobin 12.9 g/dL (11.5-14.3); Lymphocyte % 12.5 %; Mean Corpuscular Hemoglobin 32.1 pg (27-33); Mean Corpuscular Hgb Conc 34.5 g/dL (31-36); Platelet Count 271 10^3/uL (150-450); Red Blood Count 4.02 10^6/uL (3.63-4.92); Red Cell Distribution Width 14.6 % (12-17); White Blood Count 7.8 10^3/uL (3.8-11.8)
[2023-10-14 12:01] LABS: INR 1.01 (0.83-1.13)
[2023-10-14 12:37] LABS: Albumin 4.1 g/dL (3.2-5.2); Albumin/Globulin Ratio 1.6 (1-3); Calcium 9.5 mg/dL (8.6-10.3); Creatinine, Serum 0.59 mg/dL (0.51-0.95); Globulin 2.6 g/dL (2-4); Potassium 4.4 mmol/L (3.5-5.0); Total Bilirubin 0.4 mg/dL (0.2-1.0); Total Protein 6.7 g/dL (6.4-8.9); eGFR CKD-EPI 86.6 (>60)
[2023-10-14 13:13] LABS: High Sensitivity Troponin 1 Hr 1062 pg/mL (<15)
[2023-10-14] MEDS: Heparin 5000 UNITS/ML 1 mL VIAL IV SCH (15:12)
[2023-10-14] MEDS: Heparin DRIP 25,000 UNITS BAG 25,000 UNITS/250 ML BAG IV SCH (15:14)
[2023-10-14 15:20] LABS: ABS Eosinophils 0.3 10^3/uL (0.0-0.5); ABS Lymphocytes 1.1 10^3/uL (1.0-4.8); ABS Monocytes 0.7 10^3/uL (0.0-0.9); ABS Neutrophils 6.7 10^3/uL (1.5-7.6); ABS Nucleated RBC 0.01 10^3/ul; Eosinophil % 2.9 %; Hematocrit 39.1 % (35-45); Hemoglobin 13.4 g/dL (11.5-14.3); Lymphocyte % 12.5 %; Mean Corpuscular Hgb Conc 34.2 g/dL (31-36); Mean Corpuscular Volume 93.6 fL (80-97); Mean Platelet Volume 7.5 fL (7.5-11.2); Nucleated Red Blood Cells % 0.1 %/100WBC (0.0-0.8); Platelet Count 270 10^3/uL (150-450); Red Blood Count 4.18 10^6/uL (3.63-4.92); Red Cell Distribution Width 14.5 % (12-17); White Blood Count 8.8 10^3/uL (3.8-11.8)
[2023-10-14 15:33] LABS: Creatinine, Serum 0.56 mg/dL (0.51-0.95); eGFR CKD-EPI 87.7 (>60)
[2023-10-14 17:25] LABS: HDL Cholesterol 72.2 mg/dL
[2023-10-14] MEDS: EPINASTINE 0.05% BOTH EYES SCH (21:57)
[2023-10-15 05:15] LABS: Calcium 8.7 mg/dL (8.6-10.3); Creatinine, Serum 0.57 mg/dL (0.51-0.95); Potassium 3.8 mmol/L (3.5-5.0); eGFR CKD-EPI 87.4 (>60)
[2023-10-15 05:17] LABS: Magnesium 1.8 mg/dL (1.9-2.7)
[2023-10-15 05:50] LABS: TSH Ultra Thyroid Stim Horm 3.16 mcIU/mL (0.34-5.60)
[2023-10-15] MEDS ORDERED: Sulfur Hexaflouride MICROSPHR 25 MG VIAL ONE (08:20)
[2023-10-15] MEDS ORDERED: methylPREDNISolone SOD SUCC 40 mg/ml 1 ml VIAL IV SCH (10:30)
[2023-10-16 04:38] LABS: Calcium 8.5 mg/dL (8.6-10.3); Creatinine, Serum 0.51 mg/dL (0.51-0.95); Magnesium 1.9 mg/dL (1.9-2.7); eGFR CKD-EPI 89.7 (>60)
[2023-10-16 04:56] LABS: ABS Eosinophils 0.3 10^3/uL (0.0-0.5); ABS Lymphocytes 1.2 10^3/uL (1.0-4.8); ABS Monocytes 0.7 10^3/uL (0.0-0.9); ABS Neutrophils 4.2 10^3/uL (1.5-7.6); ABS Nucleated RBC 0.01 10^3/ul; Eosinophil % 4.6 %; Hematocrit 32.6 % (35-45); Hemoglobin 11.1 g/dL (11.5-14.3); Lymphocyte % 18.3 %; Mean Corpuscular Hemoglobin 32.4 pg (27-33); Mean Corpuscular Hgb Conc 34.2 g/dL (31-36); Mean Corpuscular Volume 94.7 fL (80-97); Mean Platelet Volume 7.6 fL (7.5-11.2); Nucleated Red Blood Cells % 0.1 %/100WBC (0.0-0.8); Platelet Count 224 10^3/uL (150-450); Red Blood Count 3.44 10^6/uL (3.63-4.92); Red Cell Distribution Width 14.6 % (12-17); White Blood Count 6.4 10^3/uL (3.8-11.8)
[2023-10-16 05:55] VITALS: BP 118/67
[2023-10-16] MEDS: Magnesium Sulfate IV 1GM/100ML 1 GM/100 ML BAG IV ONE (08:51)
== END 2023-10-16 11:40 | disposition home or self-care (01) | DRG 282 ==
LOC: ED 11:05 → EDHOLD 11:05 → OBSVTOIN 14:53 → INTOOBSV 14:53 → MEDTELE 19:20
PROVIDERS: ADMIT Hospitalist; ATTEND Hospitalist